=== PATIENT | male | born 1990 | race Caucasian/White ===

== ENCOUNTER 2017-09-02 19:29 | Emergency (ER) | payer OTHER ==
[2017-09-02 20:10] VITALS: BP 145/89; PULSE 93; RESP 16; TEMP 97.8; O2SAT 98
[2017-09-02] MEDS ORDERED: KETOROLAC TROMETHAMINE 30 MG/ML SOL IM ONE (20:15)
[2017-09-02 20:19] LABS: BASOPHILS % (AUTO) 1 % (0-3); EOSINOPHILS % (AUTO) 0 % (0-9); HEMATOCRIT 43 % (39-53); HEMOGLOBIN 14.9 gm/dl (13.5-17.7); LYMPHOCYTES % (AUTO) 12.5 % (10-50); MEAN CORPUSCULAR HGB CONC 35.2 gm/dl (32.0-36.0); MEAN CORPUSCULAR VOLUME 85 fL (80-100); MONOCYTES % (AUTO) 12.5 % (0-12); NEUTROPHILS % (AUTO) 74.3 % (37-80)
[2017-09-02] MEDS ORDERED: KETOROLAC TROMETHAMINE 30 MG/ML SOL ONE (20:21)
[2017-09-02 20:37] LABS: ALBUMIN 4.1 gm/dl (3.4-5.0); BILIRUBIN,TOTAL 0.5 mg/dl (0.2-1.0); CALCIUM 8.2 mg/dl (8.5-10.1); CARBON DIOXIDE 26.6 mEq/L (21-32); CREATININE 1.16 mg/dl (0.80-1.30); POTASSIUM 3.9 mMol/L (3.5-5.1); TOTAL PROTEIN 7.9 gm/dl (6.4-8.2)
[2017-09-02 21:04] LABS: APPEARANCE,URINE Clear; BILIRUBIN,URINE NEGATIVE (NEGATIVE); COLOR,URINE Dark yellow; GLUCOSE, URINE (UA) NEGATIVE (NEGATIVE); KETONES,URINE NEGATIVE (NEGATIVE); LEUKOCYTE ESTERASE ,URINE NEGATIVE (NEGATIVE); NITRATE,URINE NEGATIVE (NEGATIVE); OCCULT BLOOD,URINE NEGATIVE (NEG-TRACE); PH,URINE 5.5; UROBILINOGEN,URINE 0.2 (0.2-1.0 EU)
[2017-09-02 21:15] LABS: BACTERIA TRACE (< 1+); CRYSTALS NEGATIVE (0-3 AVE/HPF); EPITHELIAL CELLS 0-1 (SQUAMOUS); RBC,URINE 0-3 (0-3AV/HPF); WBC,URINE 0-1 (0-5AV/HPF)
== END 2017-09-02 21:45 | disposition home or self-care (01) | DRG 392 ==
LOC: ED 19:29
DX: R10.9 Unspecified abdominal pain (principal); K52.9 Noninfective gastroenteritis and colitis, unspecified
CPT/HCPCS: 36415; 80053; 81001; 82150; 85025; 96372; 99282; 99284; J1885